=== PATIENT | female | born 1975 | race Two or more races ===

== ENCOUNTER 2020-05-08 14:04 | Emergency (ER) | payer MEDICAID, OTHER ==
[~2020-05-08] VITALS: Ht 154.9 cm; Wt 64.0 kg
[~2020-05-08 14:04] MED LIST: AMLO5TAB4 PO; COM10T PO; NABU-104 PO; PANT-47 PO; PHEN-786 PO; PROC-8 PO
[2020-05-08 14:36] LABS: BASOPHILS % (AUTO) 0.4 % (0-1); EOSINOPHILS # (AUTO) 0.1 X10'3 (0-0.9); EOSINOPHILS % (AUTO) 1.1 % (0-6); HEMATOCRIT 38.5 % (35.0-45.0); HEMOGLOBIN 12.8 g/dl (12.0-16.0); LYMPHOCYTES # (AUTO) 2.4 X10'3 (1.1-4.8); LYMPHOCYTES % (AUTO) 29.2 % (21-51); MEAN CORPUSCULAR HEMOGLOBIN 28.7 PG (27.0-31.0); MEAN CORPUSCULAR HGB CONC 33.3 g/dL (33.0-36.5); MEAN CORPUSCULAR VOLUME 86.3 FL (78-98); MONOCYTES # (AUTO) 0.7 X10'3 (0-0.9); MONOCYTES % (AUTO) 8.7 % (2-12); NEUTROPHILS # (AUTO) 5.1 X10'3 (1.8-7.7); NEUTROPHILS % (AUTO) 60.6 % (42-75); PLATELET COUNT 283 X10'3 (140-440); RED BLOOD COUNT 4.46 X10'6 (4.20-5.60); RED CELL DISTRIBUTION WIDTH 13.7 % (11.5-14.5); WHITE BLOOD COUNT 8.4 X10'3 (4.5-11.0)
[2020-05-08 14:48] LABS: ALANINE AMINOTRANSFERASE 30 U/L (12-78); ALBUMIN 3.8 G/DL (3.4-5.0); ALBUMIN/GLOBULIN RATIO 0.9 (1.1-1.5); ALKALINE PHOSPHATASE 88 IU/L (46-116); ANION GAP 10 (8-16); ASPARTATE AMINO TRANSFERASE 13 U/L (10-37); BILIRUBIN,TOTAL 0.2 MG/DL (0.1-1.0); BLOOD UREA NITROGEN 15 MG/DL (7-18); BUN/CREATININE RATIO 20.3 (6.6-38.0); CALCIUM 9.1 MG/DL (8.5-10.1); CHLORIDE 105 MMOL/L (99-107); CREATININE 0.74 MG/DL (0.40-0.90); GLUCOSE 121 MG/DL (70-104); POTASSIUM 3.6 MMOL/L (3.5-5.1); SODIUM 141 MMOL/L (135-145); TOTAL PROTEIN 8.2 G/DL (6.4-8.2); eGFR 84 ML/MIN
[2020-05-08] MEDS ORDERED: ibuprofen tablet 400 MG TABLET PO ONE (15:05)
[2020-05-08] MEDS ORDERED: acetaminophen 325mg tablet PO ONE (15:05)
[2020-05-08] MEDS ORDERED: ibuprofen 200mg tablet PO ONE (15:10)
[2020-05-08 15:30] LABS: D-DIMER 0.29 MG/L FEU (0-0.50)
[2020-05-08] MEDS ORDERED: ACET-1025 PO (15:42)
[2020-05-08] MEDS ORDERED: MELO-100 PO (15:42)
[2020-05-08 16:03] VITALS: BP 173/101
== END 2020-05-08 16:02 | disposition home or self-care (01) ==
LOC: ER 14:04
DX: R07.89 Other chest pain (principal); M79.18 Myalgia, other site; Z90.49 Acquired absence of other specified parts of digestive tract; Z79.899 Other long term (current) drug therapy
CPT/HCPCS: 36415; 71045; 80053; 83880; 84484; 84702; 85025; 85379; 93005; 99285